=== PATIENT | male | born 1955 | race Two or more races ===

== ENCOUNTER 2022-12-04 08:29 | Inpatient (IN) | payer OTHER ==
[~2022-12-04] VITALS: Ht 177.8 cm; Wt 108.9 kg
[2022-12-04] MEDS ORDERED: FOLIC ACID1 MG PO (08:50)
[2022-12-04] MEDS ORDERED: NOVOLIN R100 UNIT/1 ×2 (08:50→08:51)
[2022-12-04] MEDS ORDERED: SPIRIVA RESPIMAT4 GM IH (08:51)
[2022-12-04] MEDS ORDERED: TRADJENTA5 MG PO (08:52)
[2022-12-04] MEDS ORDERED: LOSARTAN POTAS100 MG PO (08:52)
[2022-12-04] MEDS ORDERED: HUMULIN 70100 UNIT/1 SQ (08:53)
[2022-12-04] MEDS ORDERED: MONTELUKAST SOD10 MG PO (08:54)
[2022-12-04] MEDS ORDERED: RETACRIT10000 UNIT IJ (08:55)
[2022-12-04] MEDS ORDERED: DOXAZOSIN MESYLA4 MG PO (08:56)
[2022-12-04] MEDS ORDERED: LYRICA200 MG PO (08:56)
[2022-12-04] MEDS ORDERED: ZYLOPRIM100 M1 (08:56)
[2022-12-04] MEDS ORDERED: OMEPRAZOLE MAGN20 MG (08:57)
[2022-12-04] MEDS ORDERED: TAMS0.4C PO (08:57)
[2022-12-04] MEDS ORDERED: SIMVASTATIN80 MG (08:57)
[2022-12-04] MEDS ORDERED: ROFLUMILAST500 MCG PO (08:58)
[2022-12-04] MEDS ORDERED: UCERIS9 MG (08:58)
== END 2022-12-07 09:29 | disposition expired | DRG 811 ==
LOC: ER 08:29 → MEDI 17:30
PROVIDERS: ADMIT Internal Medicine; ATTEND Internal Medicine
PROC: 4A12X4Z Monitoring of Cardiac Electrical Activity, External Approach (ICD-10-PCS; 2022-12-04)
PROC: 30233N1 Transfusion of Nonautologous Red Blood Cells into Peripheral Vein, Percutaneous Approach (ICD-10-PCS; 2022-12-04)
PROC: B24BZZZ Ultrasonography of Heart with Aorta (ICD-10-PCS; 2022-12-04)
PROC: 0BH17EZ Insertion of Endotracheal Airway into Trachea, Via Natural or Artificial Opening (ICD-10-PCS; principal; 2022-12-07)
PROC: 5A1935Z Respiratory Ventilation, Less than 24 Consecutive Hours (ICD-10-PCS; 2022-12-07)
DX: D64.9 Anemia, unspecified (principal); I46.9 Cardiac arrest, cause unspecified; N17.9 Acute kidney failure, unspecified; N18.4 Chronic kidney disease, stage 4 (severe); I13.0 Hypertensive heart and chronic kidney disease with heart failure and stage 1 through stage 4 chronic kidney disease, or unspecified chronic kidney disease; J44.9 Chronic obstructive pulmonary disease, unspecified; D63.1 Anemia in chronic kidney disease; R41.82 Altered mental status, unspecified; G47.33 Obstructive sleep apnea (adult) (pediatric); E78.5 Hyperlipidemia, unspecified; F17.210 Nicotine dependence, cigarettes, uncomplicated; E11.22 Type 2 diabetes mellitus with diabetic chronic kidney disease; Z79.4 Long term (current) use of insulin; I50.9 Heart failure, unspecified; I27.20 Pulmonary hypertension, unspecified